=== PATIENT | female | born 1980 | race Two or more races ===

== ENCOUNTER 2018-03-16 10:00 | Emergency (ER) | payer OTHER ==
[~2018-03-16] VITALS: Ht 165.1 cm; Wt 77.1 kg
[~2018-03-16 10:00] MED LIST: ABILIFY5 MG; ACIDOPHILUS CA1 EACH PO; CATAFLAM50 MG PO; FIORICET 50-301 EACH PO; GLUMETZA1000 MG; HUMULIN 50/50 V10 ML SQ; JARDIANCE25 MG; KETO10TA2 PO; KLONOPIN1 MG/TAB PO; LAMICTAL100 MG PO; METFORMIN HCL500 MG; ONDANSETRON HCL4 MG; ORPH100T PO; TENCON 50-3251 EACH; VICTOZA 2-0.6 MG/0.1; WELLBUTRIN XL300 MG PO; ZOFRAN8 MG PO
[2018-03-16] MEDS ORDERED: DEPAKOTE ER500 MG (10:22)
[2018-03-16] MEDS ORDERED: TRULICITY0.75 MG/0. (10:23)
[2018-03-16] MEDS ORDERED: SYNJARDY 12.5-1 EACH (10:24)
== END 2018-03-16 16:37 | disposition home or self-care (01) ==
LOC: ER 10:00
DX: K29.70 Gastritis, unspecified, without bleeding (principal); R10.11 Right upper quadrant pain; E11.9 Type 2 diabetes mellitus without complications

== ENCOUNTER 2018-05-26 22:28 | Emergency (ER) | payer OTHER ==
[~2018-05-26] VITALS: Ht 162.6 cm; Wt 74.8 kg
[~2018-05-26 22:28] MED LIST changes: +DEPAKOTE ER500 MG; +SYNJARDY 12.5-1 EACH; +TRULICITY0.75 MG/0.
[2018-05-27] MEDS ORDERED: CELEBREX200MG PO (03:32)
[2018-05-27] MEDS ORDERED: PROTONIX40 MG PO (03:32)
[2018-05-27] MEDS ORDERED: PEPCID AC20 MG PO (03:32)
[2018-05-27] MEDS ORDERED: LEVSIN/SL0.125 MG SL (03:32)
[2018-05-27] MEDS ORDERED: TRAMADOL HCL50 MG PO (03:32)
== END 2018-05-27 03:42 | disposition home or self-care (01) ==
LOC: ER 22:28
DX: K29.70 Gastritis, unspecified, without bleeding (principal); E11.65 Type 2 diabetes mellitus with hyperglycemia

== ENCOUNTER 2022-08-29 19:47 | Emergency (ER) | payer OTHER ==
[~2022-08-29] VITALS: Ht 162.6 cm; Wt 81.6 kg
[~2022-08-29 19:47] MED LIST changes: +CELEBREX200MG PO; +LEVSIN/SL0.125 MG SL; +PEPCID AC20 MG PO; +PROTONIX40 MG PO; +TRAMADOL HCL50 MG PO
[2022-08-29] MEDS ORDERED: HUMALOG100 UNIT/2 SQ (20:03)
[2022-08-29] MEDS ORDERED: HUMALOG JU100 UNIT/1 SQ (20:03)
[2022-08-29] MEDS ORDERED: NEURONTIN600 M1 PO (20:04)
[2022-08-29] MEDS ORDERED: LAMICTAL100 M1 PO (20:04)
[2022-08-29] MEDS ORDERED: COZAAR50 MG PO (20:04)
[2022-08-29] MEDS ORDERED: METOPROLOL SUCC50 MG PO (20:05)
[2022-08-29] MEDS ORDERED: ZOFRAN8 MG PO (23:27)
[2022-08-29] MEDS ORDERED: PEPCID AC20 MG PO (23:27)
== END 2022-08-29 23:45 | disposition home or self-care (01) ==
LOC: ER 19:47
DX: K29.70 Gastritis, unspecified, without bleeding (principal); R10.84 Generalized abdominal pain

== ENCOUNTER → 2023-05-23 | Emergency (ER) | payer OTHER ==
[~2023-05-23] MED LIST changes: +COZAAR50 MG PO; +HUMALOG JU100 UNIT/1 SQ; +HUMALOG100 UNIT/2 SQ; +LAMICTAL100 M1 PO; +METOPROLOL SUCC50 MG PO; +NEURONTIN600 M1 PO
== END | disposition left against medical advice (07) ==
LOC: ER 12:46
DX: Z53.21 Procedure and treatment not carried out due to patient leaving prior to being seen by health care provider (principal)

== ENCOUNTER 2024-01-17 07:36 | Emergency (ER) | payer OTHER ==
[~2024-01-17] VITALS: Ht 162.6 cm; Wt 77.1 kg
[2024-01-17] MEDS ORDERED: ONDANSETRON HCL 2 MG/ML VIAL IV ONE (08:30)
[2024-01-17] MEDS ORDERED: 0.9 % SODIUM CHLORIDE 1,000 ML IV ONE (08:30)
[2024-01-17] MEDS ORDERED: FAMOtidine 10 MG/ML (4ML VIAL) IV ONE (08:30)
[2024-01-17] MEDS ORDERED: SUMATRIPTAN SUCCINATE 6 MG/0.5 ML VIAL SUBCUTANEO ONE (08:30)
[2024-01-17 09:27] LABS: HEMATOCRIT 43.9 % (36.0-45.00); HEMOGLOBIN 14.6 g/dL (12.0-15.00); MEAN CELL VOLUME 90.2 fL (80.00-100.00); MEAN CORPUSCULAR HGB CONC 33.2 g/dl (32.0-36.0); PLATELET COUNT 287 K/uL (150-450); RED BLOOD COUNT 4.87 M/uL (4.00-6.00)
[2024-01-17 10:01] LABS: ALBUMIN 3.5 gm/dL (3.4-5.0); ALKALINE PHOSPHATASE 78 U/L (50-136); ALT/SGPT 64 U/L (12-78); AMYLASE 60 U/L (25-115); ANION GAP 15 (10.0-20.0); AST/SGOT 32 U/L (15-37); BILIRUBIN TOTAL 0.52 mg/dL (0.3-1.2); BLOOD UREA NITROGEN 8 mg/dL (7-18); BUN CREA RATIO 11 (7.0-25.0); CALCIUM 9.2 mg/dL (8.5-10.1); CARBON DIOXIDE 22 mEq/L (21-32); CHLORIDE 104 mmol/L (98-107); GFR 90.49; GLOBULINA 4.4 G/DL (2.4-3.5); LIPASE 20 U/L (13-75); POTASSIUM 4.09 mEq/L (3.5-5.1); SODIUM 137 mmol/L (136-145); TOTAL PROTEIN 7.9 gm/dL (6.4-8.2)
[2024-01-17 10:03] LABS: GLUCOSE FASTING 322 mg/dL (65-100); HCG QUANTITATIVE < 1 mUI/mL (1-3); OSMOLALITY SERUM 285 MOSM/KG (275-295)
[2024-01-17 10:03] LABS: PH,URINE 5.5 (5.0-8.0); URINE APPEARANCE Clear; URINE BILIRRUBIN Negative (NEGATIVE); URINE BLOOD Negative; URINE COLOR Yellow; URINE LEUKOCYTE Negative; URINE NITRATE Negative; URINE UROBILINOGEN 0.2 E.U./dl
[2024-01-17 10:08] LABS: URINE BACTERIA 4737.4 uL (0.0-1933); URINE EPITHELIAL CELLS 69.2 uL (0.0-38.8); URINE RBC 4.2 uL (0.0-20.8); URINE WBC 17.1 uL (0.0-23.2)
[2024-01-17 10:16] LABS: URINE CAST 1.06 uL (0.0-1.40); URINE GLUCOSE >=1000 MG/DL (NEGATIVE); URINE KETONE >=160 (NEGATIVE); URINE PROTEIN 100 (NEGATIVE)
[2024-01-17] MEDS ORDERED: BUTALB-ACETAMI1 EACH PO (14:49)
[2024-01-17] MEDS ORDERED: ZOFRAN8 MG PO (14:53)
== END 2024-01-17 14:55 | disposition home or self-care (01) ==
LOC: ER 07:38
PROVIDERS: General Practice
DX: G43.909 Migraine, unspecified, not intractable, without status migrainosus (principal); R10.9 Unspecified abdominal pain; E11.9 Type 2 diabetes mellitus without complications; Z79.4 Long term (current) use of insulin
CPT/HCPCS: 36415; 74177; 96365; 96366; 99284; J2405; J3490; J7030; Q9965